=== PATIENT | female | born 1950 | race Caucasian/White ===

== ENCOUNTER 2019-02-23 12:27 | Emergency (ER) | payer MEDICARE ==
[2019-02-23 12:50] VITALS: BP 137/71
--- NOTE | 2019-02-23 13:11 | UC ---
Skin Complaint HPI - HPI Summary HPI Summary: 69 year old female, visiting her mother from [place], presents with a complaint of a panful rash on her right sided faln and abdomen that started yesterday. She noted pain in the same area for about 5 days before the rash appeared. - History of Current Complaint Chief Complaint: UCRash Time Seen by Provider: 02/23/19 12:42 Stated Complaint: POSS SHINGLES Hx Obtained From: Patient ?: No Onset/Duration: Gradual Onset - over the past 6 days, rash for one day. Pain Intensity: 3 Associated Signs & Symptoms: Positive: Negative - Allergy/Home Medications Allergies/Adverse Reactions: Allergies Allergy/AdvReac Type Severity Reaction Status Date / Time erythromycin base Allergy Nausea And Verified 02/23/19 12:50 Vomiting Penicillins Allergy Unknown Verified 02/23/19 12:50 Reaction Details PMH/Surg Hx/FS Hx/Imm Hx Previously Healthy: Yes - Surgical History Surgical History: None Surgery Procedure, Year, and Place: knee surgery, shoulder surgery - Family History Known Family History: Positive: Non-Contributory - Social History Alcohol Use: Daily Substance Use Type: None Smoking Status (MU): Never Smoked Tobacco Review of Systems All Other Systems Reviewed And Are Negative: Yes Constitutional: Positive: Negative Skin: Positive: Rash - See CC. Eyes: Positive: Negative ENT: Positive: Negative, Dental Pain Gastrointestinal: Positive: Negative Genitourinary: Positive: Negative Motor: Positive: Negative Neurovascular: Positive: Negative Musculoskeletal: Positive: Negative Neurological: Positive: Negative Psychological: Positive: Negative Is Patient Immunocompromised?: No Physical Exam Triage Information Reviewed: Yes Appearance: Well-Appearing, No Pain Distress Vital Signs: Initial Vital Signs Temp 98.9 F 02/23/19 12:42 Pulse 60 02/23/19 12:42 Resp 16 02/23/19 12:42 BP 137/71 02/23/19 12:42 Pulse Ox 99 02/23/19 12:42 Eye Exam: Normal ENT Exam: Normal Neck: Positive: Supple, Nontender, No Lymphadenopathy Respiratory: Positive: Lungs clear Cardiovascular: Positive: RRR, No Murmur Abdomen Description: Positive: Nontender, Soft Neurological Exam: Normal Psychological Exam: Normal Skin: Positive: Rashes - right flank radiating around to abdomen. Vessicles on erythemaous base. Course/Dx - Diagnoses Provider Diagnosis: Shingles Discharge ED - Sign-Out/Discharge Documenting (check all that apply): Patient Departure All imaging exams completed and their final reports reviewed: Yes - Discharge Plan Condition: Stable Disposition: HOME Prescriptions: Acyclovir [Zovirax] 800 mg PO SEE INSTRUCTIONS 7 Days #70 tablet Patient Education Materials: [place] (ED) Additional Instructions: Take acyclovir as prescribed. You may also take ibuprofen over the counter as needed for pain. - Billing Disposition and Condition Condition: STABLE Disposition: Home
== END 2019-02-23 13:20 | disposition home or self-care (01) ==
LOC: EDBD → UCCORT 12:27
DX: B02.9 Zoster without complications (principal); Z88.1 Allergy status to other antibiotic agents
CPT/HCPCS: 99202; G0463